=== PATIENT | female | born 1995 | race Caucasian/White ===

== ENCOUNTER 2020-05-26 08:11 | Inpatient (IN) | payer OTHER ==
[~2020-05-26] VITALS: Ht 157.5 cm; Wt 77.1 kg
[~2020-05-26 08:11] MED LIST: CLARITIN10 MG PO; VITAFOL-OB+DHA1 EACH PO
--- NOTE | 2020-05-29 11:11 | NUR ---
05/29/20 1111 Nika Gonzalez 1102- PT ARRIVES TO [facility] ROOM #104. PT ALERT AND ORIENTED REPORTING NO PAIN OR NAUSEA. PT'S 18G IV TO THE LEFT FOREARM IS INFUSING LR WITH PITOCIN WELL. PT REPORTS NO PAIN AT THE SITE. NO REDNESS OR SWELLING NOTED. 1106- BABY TO THE RIGHT BREAST WITH ASSISTANCE FROM ELLIOT BADILLO. PT'S SIGNIFICANT OTHER AT THE BEDSIDE.
--- NOTE | 2020-05-30 10:36 | OR ---
[facility] [address] [place], [place] [address] Signed DATE OF OPERATION: 05/29/2020 SURGEON: Abdulaziz Lara MD PREOPERATIVE DIAGNOSIS: Term , previous section. POSTOPERATIVE DIAGNOSIS: Term , previous section. PROCEDURE: Repeat low transverse segment section, delivery live female . [employer] PREP TEACHER: Dr. Beltrán. ANESTHESIA: Spinal. ESTIMATED BLOOD LOSS: 500 mL. COMPLICATIONS: None. DRAINS: Beckman to bladder. FINDINGS: Live female infant, Apgars 9 and 9. Weight 7 pounds 3 ounces. Normal uterus, normal tubes and ovaries bilateral. DESCRIPTION OF PROCEDURE: The patient was brought to the operating room, placed in supine position and prepped and draped in usual sterile fashion. Beckman catheter placed in the bladder. A Pfannenstiel skin incision was made with a scalpel through the previous surgical scar. Subcutaneous tissue was dissected with a scalpel and Bovie. The fascia was nicked with scalpel and extended in transverse fashion using curved scissors. The underlying abdominal musculature was bluntly and sharply from the fascia above and below the incision. The abdominal musculature was bluntly and sharply along the Electronically Signed By: ABDULZAIZ LARA MD 05/30/20 1036 PATIENT NAME: BILLY IBARRA OPERATIVE REPORT DATE OF : [birth year] REPORT #: [id number] PHYSICIAN: ABDULAZIZ LARA MD PCP: LASHA QUILES PA-C REPORT IS CONFIDENTIAL AND NOT TO BE RELEASED WITHOUT AUTHORIZATION [facility] [address] [place], [place] [address] Signed midline. The peritoneum grasped, elevated with hemostats, nicked with scissors and the incision extended in vertical fashion using curved scissors. The Brian self-retaining retractor was inserted into the incision and tightened in place. The lower uterine segment was identified. A small incision made in the midline with a scalpel. Finger dissection was used to extend the incision in transverse fashion. The infant was noted to be in the vertex MARTÍNEZ presentation. Infant head easily delivered from the incision. The rest of the infant was easily delivered from the incision. The cord doubly clamped and cut and passed off table in good condition to awaiting nurse. The placenta was manually removed and uterine cavity was explored with a lap pad to remove any retained membranes. There was a small extension on the right angle toward the bladder, so this was carefully examined and closed using running locking stitch of 0 Monocryl up to the transverse incision taking care to avoid the bladder. A running locking stitch of 0 Monocryl starting at the other end was used to close the transverse incision. A 2nd running stitch of 0 Monocryl was used to imbricate the 1st layer including the extension again taking care to avoid the bladder and keeping finger behind the broad ligament to make sure no pelvic structures were included in the closure. At this point, a good hemostasis was noted. The entire pelvis was irrigated, suctioned and examined, noted to have good hemostasis. The Brian self-retaining retractor was removed from the incision and the sheet of ACell placed over the lower uterine segment to help with healing. The anterior wall peritoneum was closed using running stitch of 2-0 Vicryl suture. The peritoneum was then closed using running stitch of 2-0 Vicryl suture. The abdominal musculature was reapproximated using interrupted stitches of 0 Vicryl suture. The abdominal wall incision was irrigated, suctioned and examined, any bleeding spots cauterized with the Bovie. The fascia was closed using two running stitch of 0 Vicryl suture meeting in the midline. The subcutaneous tissue was irrigated, suctioned, examined and any bleeding spots cauterized with the Bovie. Subcutaneous tissue was closed using interrupted stitches of 3-0 Vicryl suture and the skin reapproximated using skin clips. The patient tolerated the procedure well, went to the recovery room in good condition. Sponge, needle, and instrument count were correct at the end of the procedure. Abdulaziz Lara MD MJB/MODL /[id number] Electronically Signed By: ABDULAZIZ LARA MD 05/30/20 1036 PATIENT NAME: BILLY IBARRA OPERATIVE REPORT DATE OF : [birth year] REPORT #: [id number] PHYSICIAN: ABDULAZIZ LRAA MD PCP: LASHA QUILES PA-C REPORT IS CONFIDENTIAL AND NOT TO BE RELEASED WITHOUT AUTHORIZATION [address] [address] Signed Copies: ~ Electronically Signed By: ABDULAZIZ LARA MD 05/30/20 1036 PATIENT NAME: STACEYBILLYMARCY DE LEÓNEN OPERATIVE REPORT DATE OF : [birth year] REPORT #: [id number] PHYSICIAN: ABDULAZIZ LARA MD PCP: LASHA QUILES PA-C REPORT IS CONFIDENTIAL AND NOT TO BE RELEASED WITHOUT AUTHORIZATION
--- NOTE | 2020-05-30 11:52 | PR ---
[facility] [address] [place] [address] Signed PP Progress Notes Datetime Report Generated by CPN: 05/30/2020 11:52 SUBJECTIVE: [id number] Pain: Within Normal Limits Nausea/Vomiting: Denies Vital Signs: [id number] Vital Signs: Reviewed; Within Normal Limits Notable Details: PP Hgb/Hct = 10.3/30.7 Abdomen/Uterus: Normal Lochia: Normal Extremities: Normal Incision: Normal IMPRESSION/PLAN/PROCEDURES: [id number] Impression: Normal Progression Plan: Continue Present Management Procedures: None Progress Notes: Doing well, without complaint, up moving without problems, voiding without difficulty. Signing Physician: Diana Lees MD Copies: ~ *Electronically Signed* 05/30/20 1152 DIANA LEES MD PATIENT NAME: BILLY IBARRA PROGRESS NOTE DATE OF : [birth year] PHYSICIAN: DIANA LEES MD RPT #: [id number] REPORT IS CONFIDENTIAL AND NOT TO BE RELEASED WITHOUT AUTHORIZATION
--- NOTE | 2020-05-31 12:18 | PR ---
[facility] [address] [facility] [place], [place] [address] Signed PP Progress Notes Datetime Report Generated by CPN: 05/31/2020 12:18 SUBJECTIVE: [id number] Pain: Within Normal Limits Nausea/Vomiting: Present Nausea/Vomiting Comments: this am Vital Signs: [id number] Vital Signs: Reviewed; Within Normal Limits Notable Details: PP Hgb/Hct = 10.3/30.7 Abdomen/Uterus: Normal Lochia: Normal Extremities: Normal Incision: Normal IMPRESSION/PLAN/PROCEDURES: [id number] Impression: Normal Progression Plan: Discharge Procedures: None Progress Notes: Doing well, without complaint, wants to go home. Had N/V earlier this am after taking 2 Percocet on empty stomach, feeling better now. DIscussed taking only 1 Percocet and making sure had food before taking meds. Signing Physician: Diana Lees MD Copies: ~ *Electronically Signed* 05/31/20 1218 DIANA LEES MD PATIENT NAME: BILLY IBARRA PROGRESS NOTE DATE OF : [birth year] PHYSICIAN: DIANA LEES MD RPT #: [id number] REPORT IS CONFIDENTIAL AND NOT TO BE RELEASED WITHOUT AUTHORIZATION
== END 2020-05-31 16:20 | disposition home or self-care (01) | DRG 788 ==
LOC: FBC 05-29 07:05
PROVIDERS: ADMIT General Practice; ATTEND General Practice
PROC: 10D00Z1 Extraction of Products of Conception, Low, Open Approach (ICD-10-PCS; principal; 2020-05-29 09:00)
DX: O34.211 Maternal care for low transverse scar from previous cesarean delivery (principal); N85.8 Other specified noninflammatory disorders of uterus; Z37.0 Single live birth; Z3A.39 39 weeks gestation of pregnancy; O99.344 Other mental disorders complicating childbirth; F41.9 Anxiety disorder, unspecified; O99.892 Other specified diseases and conditions complicating childbirth; R51.9 Headache, unspecified; Z86.19 Personal history of other infectious and parasitic diseases
CPT/HCPCS: 01961; 36415; 85027; A9270; J0690; J1100; J2001; J2274; J2300; J2370; J2405; J2590; J3010; J7121

== ENCOUNTER 2025-03-01 09:03 | Emergency (ER) | payer OTHER ==
[~2025-03-01] VITALS: Ht 152.4 cm; Wt 50.0 kg
[2025-03-01 09:40] LABS: BASOPHILS 0.4 % (0.1-1.2); EOSINOPHILS 2.3 % (0.7-5.8); LYMPHOCYTES 25.7 % (19.3-51.7); MCH 31.6 PG (25.6-32.2); MCHC 34.6 g/dL (32.2-35.5); MCV 91.6 fL (79.4-94.8); MONOCYTES 7.5 % (4.7-12.5); NEUTROPHILS 63.9 % (34.0-71.1); RBC 4.74 M/uL (3.93-5.22)
[2025-03-01] MEDS ORDERED: APLENZIN174 MG PO (09:51)
[2025-03-01] MEDS ORDERED: METFORMIN HCL5000 GM MISC (09:52)
[2025-03-01] MEDS ORDERED: TOPAMAX15 MG PO (09:52)
[2025-03-01 09:53] LABS: ALT (SGPT) 17.0 U/L (14-59); AST (SGOT) 13.0 U/L (15-37); GLOMERULAR FILTRATION RATE,EST 71.0 mL/min (>60); PROTEIN, TOTAL 7.7 g/dL (6.4-8.2); UREA NITROGEN 15.0 mg/dL (7-18)
[2025-03-01] MEDS ORDERED: CAMILA0.35 MG PO (09:54)
[2025-03-01] MEDS ORDERED: OMEPRAZOLE20 MG PO (10:31)
[2025-03-01] MEDS ORDERED: NIFEDIPINE10 MG PO (10:31)
[2025-03-01 10:57] VITALS: BP 125/92
--- NOTE | 2025-03-02 21:15 | EKG ---
[facility] [address] [facility] [place] [address] Signed Sinus tachycardia Cannot rule out Inferior infarct , age undetermined Abnormal ECG No previous ECGs available Confirmed by Low Cerrato MD () on 03/02/2025 9:15:29 PM Electronically Signed By: LOW CERRATO MD 03/02/252114 PATIENT NAME: BILLY IBARRA Electrocardiogram DATE OF : [birth year] PHYSICIAN: LOW CERRATO MD REPORT #: [id number] REPORT IS CONFIDENTIAL AND NOT TO BE RELEASED WITHOUT AUTHORIZATION
== END 2025-03-01 11:00 | disposition home or self-care (01) ==
LOC: ED 09:03
PROVIDERS: Emergency Medicine
DX: R13.10 Dysphagia, unspecified (principal); Z87.891 Personal history of nicotine dependence; Z79.899 Other long term (current) drug therapy
CPT/HCPCS: 36415; 71045; 80053; 83735; 84484; 85025; 93005; 93010; 99285-25